=== PATIENT | female | born 1985 | race American Indian/Alaskan Native ===

== ENCOUNTER 2017-07-17 16:19 | Emergency (ER) | payer SELFPAY ==
[2017-07-17 17:08] LABS: Basophils # (Auto) 0.1 K/mm3 (0.0-0.1); Basophils % (Auto) 0.4 % (0.0-1.8); Eosinophils # (Auto) 0.3 K/mm3 (0.0-0.4); Eosinophils % (Auto) 1.7 % (0.0-4.3); Hematocrit 37.2 % (30.3-42.9); Hemoglobin 12.2 gm/dl (10.1-14.3); Lymphocytes # (Auto) 2.9 K/mm3 (1.2-5.4); Lymphocytes % (Auto) 17.3 % (13.4-35.0); Mean Corpuscular HGB Conc 33 % (30-34); Mean Corpuscular Hemoglobin 32 pg (28-32); Mean Corpuscular Volume 97 fl (79-97); Monocytes # (Auto) 1.6 K/mm3 (0.0-0.8); Monocytes % (Auto) 9.1 % (0.0-7.3); Platelet Count 405 K/mm3 (140-440); Red Blood Count 3.86 M/mm3 (3.65-5.03); Red Cell Distribution Width 13.8 % (13.2-15.2)
[2017-07-17 17:20] LABS: BUN/Creatinine Ratio 13; Blood Urea Nitrogen 5 mg/dL (7-17); Calcium 8.4 mg/dL (8.4-10.2); Hemolysis Index 1
[2017-07-17 17:35] LABS: Bilirubin,Urine NEG (Negative); Blood,Urine NEG (Negative); Color,Urine Yellow (Yellow); Mucus,Urine FEW /HPF; Protein,Urine <15 mg/dL mg/dL (Negative); RBC,Urine < 1.0 /HPF (0.0-6.0)
--- NOTE | 2017-07-17 20:29 | Emergency Department Report ---
ED General Adult HPI - General Chief complaint: Dyspnea/Respdistress Stated complaint: SHORT OF BREATH Time Seen by Provider: 07/17/17 20:15 Source: patient Mode of arrival: Ambulatory Limitations: No Limitations - History of Present Illness Initial comments: 32-year-old A3 states she is about 13 weeks but has had no care. Has been, short of breath since she returned from [place] a week ago in a car trip. She thinks there was mold exposure in the house in [place] she is not sure if it's her allergies acting up. She denies chest pain she denies calf pain or swelling. Does have history of hypertension while . No vaginal complaints no calf pain or swelling but having int sob, ?cp w/ dizziness -: Gradual, unknown Radiation: non-radiation Quality: sharp Consistency: intermittent Improves with: none Worsens with: none Associated Symptoms: shortness of breath, weakness. denies: headaches, loss of appetite, malaise, nausea/vomiting, rash, seizure - Related Data Previous Rx's Medication Instructions Recorded Last Taken Type Azithromycin [Zithromax TAB] 250 mg PO QDAY #6 tablet 07/18/17 Unknown Rx Allergies Allergy/AdvReac Type Severity Reaction Status Date / Time No Known Allergies Allergy Unverified 07/17/17 16:33 ED Review of Systems ROS: Stated complaint: SHORT OF BREATH Other details as noted in HPI Comment: All other systems reviewed and negative Constitutional: denies: diaphoresis, fever, malaise ENT: denies: dental pain, hearing loss, epistaxis Respiratory: shortness of breath. denies: cough, orthopnea, stridor Cardiovascular: denies: palpitations, orthopnea, edema, syncope Gastrointestinal: denies: abdominal pain, nausea, vomiting, hematemesis, melena , hematochezia Neurological: denies: headache, weakness, numbness, paresthesias, confusion, abnormal gait ED Past Medical Hx - Past Medical History Previous Medical History?: No - Surgical History Additional Surgical History: ectopic , x2 - Social History Smoking Status: Never Smoker Substance Use Type: None - Medications Home Medications: Home Medications Medication Instructions Recorded Confirmed Last Taken Type Azithromycin [Zithromax TAB] 250 mg PO QDAY #6 tablet 07/18/17 Unknown Rx ED Physical Exam - General Limitations: No Limitations General appearance: alert, anxious - Head Head exam: Present: atraumatic, normocephalic - Eye Eye exam: Present: normal appearance, PERRL, EOMI - ENT ENT exam: Present: normal exam, normal orophraynx - Neck Neck exam: Present: normal inspection. Absent: tenderness, meningismus - Respiratory Respiratory exam: Present: normal lung sounds bilaterally. Absent: respiratory distress, wheezes, rales, rhonchi, stridor, chest wall tenderness, accessory muscle use, decreased breath sounds - Cardiovascular Cardiovascular Exam: Present: regular rate, normal rhythm - GI/Abdominal GI/Abdominal exam: Present: soft, other (gravid just inferior to the umbilicus) . Absent: tenderness, guarding, rebound, pulsatile mass - Extremities Exam Extremities exam: Present: normal inspection, normal capillary refill. Absent: joint swelling, calf tenderness - Back Exam Back exam: Present: normal inspection. Absent: CVA tenderness (L), paraspinal tenderness, vertebral tenderness - Neurological Exam Neurological exam: Present: alert, oriented X3, CN II-XII intact. Absent: motor sensory deficit - Skin Skin exam: Absent: rash, cyanosis, diaphoretic, erythema, urticaria, vesicles, petechiae ED Course Vital Signs 07/17/17 07/17/17 07/17/17 16:29 20:40 20:45 Temperature 98.2 F Pulse Rate 80 80 80 Pulse Rate [ Right Lower Lobe] Respiratory 20 18 15 Rate Respiratory Rate [Right Lower Lobe] Blood Pressure 126/73 109/69 O2 Sat by Pulse 100 100 Oximetry 07/17/17 07/17/17 07/17/17 20:46 21:00 21:16 Temperature Pulse Rate 81 76 76 Pulse Rate [ Right Lower Lobe] Respiratory 14 21 16 Rate Respiratory Rate [Right Lower Lobe] Blood Pressure 110/63 109/69 O2 Sat by Pulse 100 100 100 Oximetry 07/17/17 07/17/17 07/18/17 21:20 23:31 00:54 Temperature Pulse Rate Pulse Rate [ 76 Right Lower Lobe] Respiratory Rate Respiratory 18 Rate [Right Lower Lobe] Blood Pressure O2 Sat by Pulse 99 100 Oximetry 07/18/17 07/18/17 07/18/17 01:00 01:15 01:30 Temperature Pulse Rate Pulse Rate [ Right Lower Lobe] Respiratory Rate Respiratory Rate [Right Lower Lobe] Blood Pressure 92/65 92/65 97/73 O2 Sat by Pulse 100 100 100 Oximetry 07/18/17 07/18/17 07/18/17 01:40 01:45 02:00 Temperature Pulse Rate Pulse Rate [ Right Lower Lobe] Respiratory 18 Rate Respiratory Rate [Right Lower Lobe] Blood Pressure 96/74 104/65 O2 Sat by Pulse 100 99 100 Oximetry ED Medical Decision Making - Lab Data Result diagrams: 07/17/17 16:51 07/17/17 16:51 - EKG Data EKG shows normal: sinus rhythm Rate: normal - EKG Data Interpretation: nonspecific ST-T wave theodore 07/18/17 03:48 no acute ischemic change - Radiology Data Radiology results: report reviewed - Medical Decision Making Patient has had no care IUP was documented with an ultrasound viable. She has no vaginal bleeding. Given the nature of his symptoms A changes were obtained. This did show a elevated d-dimer. For this reason I did consult Dr. Navarrete did recommend a V/Q scan patient to consent to V/Q scanning as well as plain x-ray. She was worth the risk including anomalies. She did consent to these and did verbalize understanding. The VQ is read as negative by the radiologist as well as chest x-ray. Differential does include cardiomyopathy PE pneumonia. However the symptoms are more likely related to mold exposure that affected her allergies and her bronchitis. She is or for stable for outpatient follow-up with the remainder of the workup was unremarkable she has no acute abdomen at this time no vaginal bleeding and a normal IUP she is felt to be stable for outpatient follow-up Critical care attestation.: If time is entered above; I have spent that time in minutes in the direct care of this critically ill patient, excluding procedure time. ED Disposition Clinical Impression: Normal IUP (intrauterine ) on ultrasound, Bronchitis Disposition: - TO HOME OR SELFCARE Is pt being admited?: No Condition: Stable Instructions: Chronic Bronchitis (ED), Acute Bronchitis (ED), (ED) Additional Instructions: return if new or alarming symptoms, see the doctor listed Prescriptions: Azithromycin [Zithromax TAB] 250 mg PO QDAY #6 tablet Referrals: ROLAND NAVARRETE MD [Staff Physician] - 3-5 Days Time of Disposition: 03:52
[2017-07-17 20:37] LABS: Bilirubin,Urine NEG (Negative); Blood,Urine NEG (Negative); Color,Urine Straw (Yellow); Mucus,Urine FEW /HPF; Protein,Urine <15 mg/dL mg/dL (Negative); Urobilinogen,Urine < 2.0 mg/dL (<2.0)
[2017-07-17] MEDS ORDERED: DUONEB *Not for PRN Use IH ONE (20:44)
--- NOTE | 2017-07-17 21:35 | XRay Report ---
FINAL REPORT PROCEDURE: XR CHEST 1V AP TECHNIQUE: Chest radiograph anteroposterior view. CPT 82522 HISTORY: sob/shield pt , pt states 14 wks ega COMPARISON: No prior studies are available for comparison. FINDINGS: Heart: Normal. Mediastinum/Vessels: Normal. Lungs/Pleural space: Normal. Bony thorax: No acute osseous abnormality. Life support devices: None. IMPRESSION: No acute cardiopulmonary abnormality.
--- NOTE | 2017-07-17 23:06 | Ultrasound Report ---
FINAL REPORT PROCEDURE: US OB < = 14 WEEKS FETUS TECHNIQUE: Real-time transabdominal sonography of the uterus, placenta, amniotic fluid, adnexa, and fetus was performed with image documentation. Measurements were obtained to determine age/size. M-mode Doppler was used to document heartbeat. CPT 99015 HISTORY: preg/sob COMPARISON: No prior studies are available for comparison. FINDINGS: CRL: 74 mm, which corresponds to a gestational age of: 13 weeks, 4 days. Embryonic Cardiac Activity: 156 beats per minute Gestational Sac: Normal. Amniotic fluid: Normal. Right Ovary: Normal. Left Ovary: Normal. Estimated delivery date: 01/18/2018 Uterus and adnexa: Normal. Placenta is anterior IMPRESSION: Single live intrauterine gestation at approximately 13 weeks and 4 days. EDC by US 01/18/2018
--- NOTE | 2017-07-18 03:27 | Nuclear Medicine Report ---
FINAL REPORT PROCEDURE: NM PERFUSION ONLY LUNG SCAN TECHNIQUE: mCi Tc-99m MAA was injected IV for pulmonary perfusion imaging in multiple projections. Injection site: RIGHT antecubital fossa. CPT 46910 HISTORY: elev ddimer/sob COMPARISON: Chest radiograph the same date FINDINGS: Perfusion: No defects . IMPRESSION: Normal Examination
[2017-07-18 04:10] VITALS: BP 132/75
== END 2017-07-18 04:11 | disposition home or self-care (01) ==
LOC: ED 16:19
DX: O36.5910 Maternal care for other known or suspected poor fetal growth, first trimester, not applicable or unspecified (principal); O99.511 Diseases of the respiratory system complicating pregnancy, first trimester; J40 Bronchitis, not specified as acute or chronic; Z3A.13 13 weeks gestation of pregnancy
CPT/HCPCS: 36415; 71045; 76801; 78580; 80048; 81001; 83880; 84484; 84702; 85025; 85379; 93005; 93010; 99284; A9540